=== PATIENT | male | born 1955 | race Caucasian/White ===

== ENCOUNTER 2021-09-30 13:10 | Observation (INO) | payer OTHER, SELFPAY ==
[2021-09-30] VITALS (29 sets, daily range): BP systolic 104–125; BP diastolic 54–72; PULSE 51–64; RESP 13–26; TEMP 36.2–36.7; O2SAT 95–98
--- NOTE | 2021-09-30 13:15 | RT.EKG_ITS ---
APPROVED REPORT Exam: Resting ECG Reason for Exam: heart issues Patient Location: E HR:54 bpm ECG Measurements Heart Rate 54 AXIS RI 164 P 47 QRSd 101 QRS 23 QT 437 T 53 QTc 416 Conclusion Sinus bradycardia.
--- NOTE | 2021-09-30 13:32 | ED.GENADUL_ITS ---
Discharge Plan Disposition Patient Disposition: [facility] INPATIENT Condition: Stable Discharge Details Clinical Impression: Diaphoresis, Fatigue, Arm paresthesia, left Admit Date/Time: 09/30/21 17:38 Admit Provider: Elyssa Solis Attending Provider: Elyssa Solis Primary Care Provider: Neli,Local ED Provider: Evgeny Dyer Discharge Data Discharge Date/Time-TO BE ENTERED AT DEPARTURE: 09/30/21 18:32 Medical Decision Making <JAQUELINE Aragon - Last Filed: 10/11/21 08:30> Patient is a pleasant 66-year-old male with past medical history pertinent for elevated cholesterol, prediabetes, typically receives care at the [facility], presenting today with chief complaint of diaphoresis, neck, or left shoulder pain, diaphoresis and fatigue while cutting wood. He reports that this occurred approximately 2 hours prior to arrival. He states that he been seen by his primary care within the last 2 weeks with his increased fatigue and that they ordered tick and Lyme panel as well as further evaluation for fatigue. He does not personally have a history of cardiac disease but his brother did have an ND in his 50s, father also had ND at a young age. He states that he is not having exertional fatigue and has been having some of the other symptoms such as the neck discomfort but to a much lesser degree that he experienced today. His fatigue is always exertionally based as it was today. He denies any pain radiating into his back. He denies any recent travel. No shortness of breath. States that he has had some nausea associated with his symptoms but is not currently nauseated. Denies any symptoms at this time. \On exam, patient appears nontoxic. He is slightly bradycardic with heart rate in the 50s. Unclear what his baseline is. He is not on any beta-blockers. Lungs are clear, sinus bradycardia cardiac exam is otherwise normal with no murmurs rubs or gallops. Slight epigastric discomfort with palpation of the abdomen. No lower extremity edema and shortness of breath with normal ext remities. EKG was reviewed by Dr. Carrasco. Significant for sinus bradycardia but no acute evidence of ischemic event or STEMI. Concern at this time for NSTEMI versus unstable angina. Patient given full dose aspirin to chew, will remain on cardiac rehabilitation specialist and will order labs including troponin. His work-up is pending for this acute on chronic fatigue, will also order thyroid panel. <JAQUELINE Sanchez - Last Filed: 09/30/21 17:43> Patient is a pleasant 66-year-old male with past medical history pertinent for elevated cholesterol, prediabetes, typically receives care at the [facility], presenting today with chief complaint of diaphoresis, neck, or left shoulder pain, diaphoresis and fatigue while cutting wood. He reports that this occurred trey roximately 2 hours prior to arrival. He states that he been seen by his primary care within the last 2 weeks with his increased fatigue and that they ordered tick and Lyme panel as well as further evaluation for fatigue. He does not personally have a history of cardiac disease but his brother did have an ND in his 50s, father also had ND at a young age. He states that he is not having exertional fatigue and has been having some of the other symptoms such as the neck discomfort but to a much lesser degree that he experienced today. His fatigue is always exertionally based as it was today. He denies any pain radiating into his back. He denies any recent travel. No shortness of breath. States that he has had some nausea associated with his symptoms but is not currently nauseated. Denies any symptoms at this time. \On exam, patient appears nontoxic. He is slightly bradycardic with heart rate in the 50s. Unclear what his baseline is. He is not on any beta-blockers. Lungs are clear, sinus bradycardia cardiac exam is otherwise normal with no murmurs rubs or gallops. Slight epigastric discomfort with palpation of the abdomen. No lower extremity edema and shortness of breath with normal extremities. EKG was reviewed by Dr. Carrasco. Significant for sinus bradycardia but no acute evidence of ischemic event or STEMI. Concern at this time for NSTEMI versus unstable angina. Patient given full dose aspirin to chew, will remain on cardiac rehabilitation specialist and will order labs including troponin. His work-up is pending for this acute on chronic fatigue, will also order thyroid panel. 1530: Evgeny Dyer PA-C I assumed care of this 66-year-old gentleman from my colleague JAQUELINE Rocha, please see her initial HPI and examination. Patient presented for blood is concerning for a chest pain equivalent while chopping wood today. Full dose aspirin has been given. He is currently asymptomatic. Initial cardiac work-up unremarkable. Awaiting delta troponin and EKG. Repeat EKG performed at 1645 reveals sinus bradycardia, ventricular to 56, no STEMI. Delta troponin remains less than 50. Patient has a heart score of 4 or 5 depending on how he would categorize his overall story and presentation. Either way this places him into the moderate risk factor I do believe that admission for additional cardiac work-up is reasonable. This plan was discussed both with patient Case discussed with Dr. Solis who is agreeable to admit the patient. This documentation was generated using Shoot it!ation system, please disregard any oddities of phrase or misspellings. Imaging Data Radiologic Study: Attestation: I personally reviewed and interpreted this imaging study as follows: Imaging: X-Ray Radiologist's impression: Exam(s) XR CHEST 2V PA LATERAL EXAM: XR CHEST 2V PA LATERAL CLINICAL HISTORY: weakness, diaphoresis TECHNIQUE: 2D digital imaging was performed of the chest. Two images were obtained. PA and lateral views were obtained. COMPARISON: No exams were available for comparison FINDINGS: MEDIASTINUM: Normal. HEART: Normal. PULMONARY VASCULATURE: Normal. LUNGS: Clear. PLEURAL SPACE: No pleural effusion or pneumothorax. BONE:Within normal limits for the patient's age. OTHER FINDINGS:Normal. IMPRESSION: No acute pulmonary findings. Lab Data Lab results reviewed: Yes I reviewed the patient's lab results. Labs: Laboratory Tests Range/Units 09/30/21 09/30/21 09/30/21 13:40 13:40 13:40 WBC (4.4-10.8) 10^3/uL 7.27 RBC (4.36-5.78) 10^6/uL 4.77 Hgb (13.5-17.5) g/dL 14.2 Hct (40.0-50.0) % 42.0 MCV (80-95) fL 88 MCH (27.0-33.0) pg 29.8 MCHC (32.0-36.0) % 33.8 RDW (11.8-14.1) % 12.9 Plt Count (130-400) 10^3/uL 197 MPV (8.0-11.0) fL 10.9 Immature Gran % 0.4 Neutrophils % 66.1 Lymphocytes % 17.5 Monocytes % 14.2 Eosinophils % 1.5 Basophils % 0.3 Nucleated RBC % (0.0-0.3) % 0.0 Absolute Neutrophils (1.2-6.7) 10^3/uL 4.81 Absolute Lymphocytes (1.2-3.4) 10^3/uL 1.27 Absolute Monocytes (0.1-0.8) 10^3/uL 1.03 H Absolute Eosinophils (0.0-0.7) 10^3/uL 0.11 Absolute Basophils (0.0-0.2) 10^3/uL 0.02 Sodium (136-145) mmol/L 141 Potassium (3.5-5.1) mmol/L 3.8 Chloride (98-107) mmol/L 106 Carbon Dioxide (21.0-32.0) mmol/L 26.6 Anion Gap (3-11) mmol/L 8.4 BUN (7-18) mg/dL 17 Creatinine (0.70-1.30) mg/dL 1.0 Estimated GFR/1.73 m2 (mL/min/1.73m2) >= 60.00 Glucose (74-106) mg/dL 104 Calcium (8.5-10.1) mg/dL 8.1 L Magnesium (1.8-2.4) mg/dL 2.1 Total Bilirubin (0.2-1.0) mg/dL 0.4 AST (15-37) U/L 37 ALT (16-63) U/L 44 Alkaline Phosphatase (46-116) U/L 54 Troponin I (<or=60) ng/L < 50 Total Protein (6.4-8.2) g/dL 6.8 Albumin (3.4-5.0) g/dL 3.6 TSH (0.36-3.74) uIU/mL 2.29 Range/Units 09/30/21 16:43 WBC (4.4-10.8) 10^3/uL RBC (4.36-5.78) 10^6/uL Hgb (13.5-17.5) g/dL Hct (40.0-50.0) % MCV (80-95) fL MCH (27.0-33.0) pg MCHC (32.0-36.0) % RDW (11.8-14.1) % Plt Count (130-400) 10^3/uL MPV (8.0-11.0) fL Immature Gran % Neutrophils % Lymphocytes % Monocytes % Eosinophils % Basophils % Nucleated RBC % (0.0-0.3) % Absolute Neutrophils (1.2-6.7) 10^3/uL Absolute Lymphocytes (1.2-3.4) 10^3/uL Absolute Monocytes (0.1-0.8) 10^3/uL Absolute Eosinophils (0.0-0.7) 10^3/uL Absolute Basophils (0.0-0.2) 10^3/uL Sodium (136-145) mmol/L Potassium (3.5-5.1) mmol/L Chloride (98-107) mmol/L Carbon Dioxide (21.0-32.0) mmol/L Anion Gap (3-11) mmol/L BUN (7-18) mg/dL Creatinine (0.70-1.30) mg/dL Estimated GFR/1.73 m2 (mL/min/1.73m2) Glucose (74-106) mg/dL Calcium (8.5-10.1) mg/dL Magnesium (1.8-2.4) mg/dL Total Bilirubin (0.2-1.0) mg/dL AST (15-37) U/L ALT (16-63) U/L Alkaline Phosphatase (46-116) U/L Troponin I (<or=60) ng/L < 50 Total Protein (6.4-8.2) g/dL Albumin (3.4-5.0) g/dL TSH (0.36-3.74) uIU/mL HPI <JAQUELINE Aragon - Last Filed: 10/11/21 08:30> General Date/Time Provider Initiated Documentation: 09/30/21 13:32 . Limitations to Documentation: no limitations . Information obtained by: patient and RN notes reviewed . History of Present Illness 66 year old M presents to the emergency department with the chief complaint of jaw, left shoulder discomfort, diaphoresis, fatigue, nausea, described as moderate, with intensity rated at 4. Quality is described as other (pressure), and is localized to the neck, left and upper extremity. Patient started experiencing this week(s) and it has been intermittent. Immobilization improves symptom(s), Movement worsens symptoms . Patient notes chest pain (mild chest pressure, not during majority of these episodes), diaphoresis and nausea/vomiting; denies cough, fever/chills, loss of appetite, shortness of breath and syncope. Patient did receive the following treatments prior to arrival, none Related Data Home Medications Medication Instructions Recorded Confirmed citalopram 30 mg capsule 30 mg PO DAILY 09/30/21 09/30/21 pravastatin 20 mg tablet 40 mg PO DAILY 09/30/21 09/30/21 Allergies Allergy/AdvReac Type Severity Reaction Status Date / Time No Known Allergies Allergy Unverified 09/30/21 13:27 General Stated Complaint: Chest Pain HECTOR: 3 Review of Systems <JAQUELINE Aragon - Last Filed: 10/11/21 08:30> Constitutional Constitutional: Reports as per HPI, Denies chills, Denies fever(s), Denies headache(s), Denies lethargy and Denies poor appetite ENT Ears, Nose, Mouth, and Throat: Denies dizziness and Denies headache(s) Cardiovascular Cardiovascular: Reports as per HPI, Denies dyspnea and Denies dyspnea on exertion Respiratory Respiratory: Reports as per HPI, Denies chest congestion, Denies cough, Denies pain on inspiration, Denies pain with cough, Denies dyspnea and Denies dyspnea on exertion Gastrointestinal Gastrointestinal: Reports as per HPI, Denies abdominal pain, Denies diarrhea and Denies vomiting Genitourinary Genitourinary: Denies system reviewed and no additional complaints, except as documented (denies change in urinary habits) Musculoskeletal Musculoskeletal: Reports as per HPI and Denies back pain Integumentary/Breasts Skin/Breast: Reports as per HPI and Denies rash Neurologic Neurologic: Reports as per HPI, Denies dizziness and Denies headache(s) PFSH <JAQUELINE Aragon - Last Filed: 10/11/21 08:30> All Active Problems (Updated 10/02/21 @ 00:07 by CHALO PIÑA) Diaphoresis (Acute) Fatigue (Acute) Arm paresthesia, left (Acute) Social History Smoking/Tobacco Use Status: Never Smoking risk assessment performed?: Yes Alcohol Intake: current Alcohol Intake frequency: holidays/special occasions only Alcohol type: beer Drug use: Never Substance use type: does not use Do you feel safe at home: Yes Do you feel safe in your relationship?: Yes Exam <JAQUELINE Aragon - Last Filed: 10/11/21 08:30> Const General: cooperative, healthy appearing, comfortable, no acute distress and well developed Nutritional Appearance: average body habitus and well nourished Orientation: alert, awake and oriented x3 [facility] Head: normal to inspection Ears: hearing grossly normal bilaterally Mouth: moist mucous membranes Chest Chest: normal inspection of the chest, normal palpation of entire chest wall and no crepitus Resp Effort & Inspection: normal respiratory effort, able to speak in complete sentences and no respiratory distress Auscultation: clear to auscultation bilaterally, no rales, no rhonchi and no wheezes Cardio Rate: regular rate Rhythm: regular rhythm Heart Sounds: S1 normal and S2 normal GI Inspection: normal to inspection, no edema and non-distended Palpation: soft, no hepatosplenomegaly, not firm, no guarding, not rigid and nontender Auscultation: normal bowel sounds Skin General skin exam: no rashes or lesions noted Trauma: no lacerations or abrasions Neuro General: patient alert, patient awake and patient oriented x3 Cognition: normal cognition Speech: speech normal Gait: normal gait Extrem General: normal to inspection, capillary refill normal, no pedal edema, no calf tenderness and normal gait Psych Appearance: grossly normal and well kempt Mental Status: mental status grossly normal Speech and Movement: speech and movement normal Course <JAQUELINE Aragon Filed: 10/11/21 08:30> Vital Signs Vital signs: Vital Signs Temperature 36.2 C L 09/30/21 13:20 Pulse 55 L 09/30/21 13:20 Respiratory Rate 18 09/30/21 13:20 Pulse Oximetry 97 09/30/21 13:20 Temperature 36.2 C L 09/30/21 13:20 Temperature Source Temporal Artery Scan 09/30/21 13:20 Pulse 55 L 09/30/21 13:20 Respiratory Rate 18 09/30/21 13:20 Respiratory Effort Non-Labored 09/30/21 13:28 Respiratory Depth Normal 09/30/21 13:28 Respiratory Pattern Normal 09/30/21 13:28 Pulse Oximetry 97 09/30/21 13:20 Oxygen Delivery Method Room Air 09/30/21 13:20 Oxygen Flow Rate 0 09/30/21 13:20 Pain Level 4 09/30/21 13:20 Sign Out <JAQUELINE Aragon Filed: 10/11/21 08:30> Sign Out Data: Sign Out Comment: Care transition to Ed Dyer PA-C. Concern for NSTEMI versus unstable angina. He has received aspirin. heart score of 6. Awaiting repeat troponin. Stable and asymptomatic. Last updated by Yanira Rocha PA at 09/30/21 16:25 PAWSS <JAQUELINE Aragon - Last Filed: 10/11/21 08:30> Have you Been Recently Intoxicated or Drunk Within the Last 30 days?: No Have you Ever Experienced Previous Episodes of Alcohol Withdrawal?: No Have you ever Experienced Withdrawal Seizures?: No Have you ever Experienced Delirium Tremens(DT)s?: No Have you ever undergone Alcohol Rehabilitation Treatment (i.e, inpt ot outpatient treatment programs)?: No Have you ever Experienced Blackouts?: No Have you ever Combined Alcohol with other Downers within the last 90 days?: No Have you ever Combined Alcohol with any other Substance of Abuse during the last 90 days?: No Positive Blood Alcohol level on Presentation? [PCS.BAL]: No Evidence of Increased Autonomic Activity (i.e. HR>120, tremor, sweating, agitation, nausea)?: No Result: 0 <JAQUELINE Sanchez - Last Filed: 09/30/21 17:43> Result: 0
[2021-09-30] MEDS: Aspirin 81 MG CHEW (13:48)
[2021-09-30 13:58] LABS: Abs Immature Grans 0.03 10^3/uL (0.0-0.06); Absolute Basophil Count 0.02 10^3/uL (0.0-0.2); Absolute Eosinophil Count 0.11 10^3/uL (0.0-0.7); Absolute Lymphocyte Count 1.27 10^3/uL (1.2-3.4); Absolute Monocyte Count 1.03 10^3/uL (0.1-0.8); Absolute Neutrophil Count 4.81 10^3/uL (1.2-6.7); Basophils % 0.3; Eosinophils % 1.5; HGB 14.2 g/dL (13.5-17.5); Immature Grans % 0.4; Lymphocytes % 17.5; MCH 29.8 pg (27.0-33.0); MCHC 33.8 % (32.0-36.0); MCV 88 fL (80-95); MPV 10.9 fL (8.0-11.0); Monocytes % 14.2; Neutrophils % 66.1; Platelet Count 197 10^3/uL (130-400); RBC 4.77 10^6/uL (4.36-5.78); RDW 12.9 % (11.8-14.1); WBC 7.27 10^3/uL (4.4-10.8)
[2021-09-30 14:16] LABS: ALT 44 U/L (16-63); AST 37 U/L (15-37); Albumin 3.6 g/dL (3.4-5.0); Alkaline Phosphatase 54 U/L (46-116); Anion Gap 8.4 mmol/L (3-11); BUN 17 mg/dL (7-18); Bilirubin, Total 0.4 mg/dL (0.2-1.0); CO2 26.6 mmol/L (21.0-32.0); Calcium 8.1 mg/dL (8.5-10.1); Chloride 106 mmol/L (98-107); Glucose 104 mg/dL (74-106); Magnesium 2.1 mg/dL (1.8-2.4); Potassium 3.8 mmol/L (3.5-5.1); Sodium 141 mmol/L (136-145); Total Protein 6.8 g/dL (6.4-8.2); Troponin I < 50 ng/L (<or=60)
[2021-09-30 14:25] LABS: TSH (W/Ref FT4) 2.29 uIU/mL (0.36-3.74)
--- NOTE | 2021-09-30 14:30 | RT.EKG_ITS ---
APPROVED REPORT Exam: Resting ECG Reason for Exam: CP Patient Location: E HR:56 bpm ECG Measurements Heart Rate 56 AXIS MA 168 P 49 QRSd 96 QRS 14 QT 430 T 55 QTc 414 Conclusion Sinus bradycardia
--- NOTE | 2021-09-30 16:30 | RT.EKG_ITS ---
APPROVED REPORT Exam: Resting ECG Reason for Exam: weakness Patient Location: E HR:56 bpm ECG Measurements Heart Rate 56 AXIS OR 173 P 53 QRSd 92 QRS 1 QT 424 T 51 QTc 411 Conclusion Sinus bradycardia...rate< 60
--- NOTE | 2021-09-30 16:30 | RT.EKG_ITS ---
APPROVED REPORT Exam: Resting ECG Reason for Exam: weakness Patient Location: E HR:54 bpm ECG Measurements Heart Rate 54 AXIS NH 171 P 50 QRSd 95 QRS 22 QT 432 T 52 QTc 411 Conclusion Sinus bradycardia...rate< 60
[2021-09-30 17:05] LABS: Troponin I < 50 ng/L (<or=60)
[2021-09-30 17:42] LABS: Source Nasal/Nares
[2021-09-30 18:19] LABS: COVID-19 PCR Negative (Negative)
[2021-09-30] MEDS: Enoxaparin 40 MG/0.4 ML SYR SC (19:55)
[2021-09-30] MEDS: Pravastatin 20 MG TAB 40 MG PO (21:33)
[2021-10-01 03:52] VITALS: BP 134/82; PULSE 54; RESP 18; TEMP 36.7; O2SAT 97
--- NOTE | 2021-10-01 06:25 | HPE_ITS ---
Date of service: 09/30/21 Time of Service: 17:30 Assessment and Plan Assessment and plan (1) Diaphoresis: Status: Acute Assessment and plan: Diaphoresis has resolved (2) Fatigue: Status: Acute Assessment and plan: Has been having 2 weeks of fatigue with no known cause. Tick and Lyme studies are pending at the [facility]. Checking labs, echo and MPI stress test (3) Arm paresthesia, left: Status: Acute Assessment and plan: Resolved As above History of Present Illness History of Present Illness Chief Complaint: Left shoulder pain Narrative: This 66-year-old male with past medical history pertinent for elevated cholesterol, prediabetes, typically receives care at the [facility], presented to the [facility] emergency department with the chief complaint of left shoulder pain,? diaphoresis and fatigue while cutting wood.? He reports that this occurred approximately 2 hours prior to arrival.? He stated that he was seen by his primary care provider within the last 2 weeks with the complaint of increased fatigue. The PCP ordered a tick and Lyme panel as well as further evaluation for fatigue.? He does not have a history of cardiac disease but his brother did have an CO in his 50s, father also had CO at a young age.? He stated he is having exertional fatigue and has been having some neck discomfort but to a much lesser degree than he experienced today.? He denied any pain radiating into his back.? He denied any recent travel.?He denied chest pain and shortness of breath.? He stated he also had some nausea associated with his symptoms. In the emergency department he stated all of his symptoms had resolved. His EKG was NSR and labs were unremarkable. He is placed in observation status on the medical surgical unit. Review of Systems All systems reviewed & are unremarkable except as noted in HPI and below PFSH All Active Problems (Updated 10/02/21 @ 00:07 by CHALO PIÑA) Diaphoresis (Acute) Fatigue (Acute) Arm paresthesia, left (Acute) Social History Smoking/Tobacco Use Status: Never Smoking risk assessment performed?: Yes Alcohol Intake: current Alcohol Intake frequency: holidays/special occasions only Alcohol type: beer Drug use: Never Substance use type: does not use Do you feel safe at home: Yes Do you feel safe in your relationship?: Yes Meds Allergies and Home Medications Allergies Allergy/AdvReac Type Severity Reaction Status Date / Time No Known Allergies Allergy Unverified 09/30/21 13:27 Home Medications Medication Instructions Recorded Confirmed Type citalopram 30 mg capsule 30 mg PO DAILY 09/30/21 09/30/21 History pravastatin 20 mg tablet 40 mg PO DAILY 09/30/21 09/30/21 History Exam Narrative Exam Narrative: Const General: no acute distress Nutritional Appearance: average body habitus [facility] Head: normocephalic Ears: external ears normal and no periauricular adenopathy General nose exam: nasal mucous membranes and turbinates normal Face and sinus: sinuses nontender Mouth: oropharynx normal and moist mucous membranes Teeth and gingiva: dentition normal Eyes General: appearance normal, both eyes and all related structures Pupils: PERRL Neck Neck: normal visual inspection and no lymphadenopathy Chest Chest: normal inspection of the chest Resp Effort & Inspection: normal respiratory effort Auscultation: no rales, no rhonchi and no wheezes Cardio Rate: tachycardic Rhythm: regular rhythm Heart Sounds: S1 normal, S2 normal and no murmurs Pulses: radial pulses present bilaterally GI Inspection: normal to inspection Palpation: soft Skin General skin exam: no rashes or lesions noted Neuro General: patient alert, patient awake and patient oriented x3 Extrem General: no clubbing, cyanosis or edema Psych Mental Status: mental status grossly normal Affect: normal affect Attitude: cooperative Results Labs Result diagrams: 10/01/21 06:20 10/01/21 06:20 Labs: Laboratory Results - last 24 hr 09/30/21 09/30/21 09/30/21 13:40 13:40 13:40 WBC 7.27 RBC 4.77 Hgb 14.2 Hct 42.0 MCV 88 MCH 29.8 MCHC 33.8 RDW 12.9 Plt Count 197 MPV 10.9 Immature Gran % 0.4 Neutrophils % 66.1 Lymphocytes % 17.5 Monocytes % 14.2 Eosinophils % 1.5 Basophils % 0.3 Nucleated RBC % 0.0 Absolute Neutrophils 4.81 Absolute Lymphocytes 1.27 Absolute Monocytes 1.03 H Absolute Eosinophils 0.11 Absolute Basophils 0.02 Sodium 141 Potassium 3.8 Chloride 106 Carbon Dioxide 26.6 Anion Gap 8.4 BUN 17 Creatinine 1.0 Estimated GFR/1.73 m2 >= 60.00 Glucose 104 Calcium 8.1 L Magnesium 2.1 Total Bilirubin 0.4 AST 37 ALT 44 Alkaline Phosphatase 54 Troponin I < 50 Total Protein 6.8 Albumin 3.6 TSH 2.29 COVID-19 Source SARS-CoV-2 (PCR) 09/30/21 09/30/21 16:43 17:35 WBC RBC Hgb Hct MCV MCH MCHC RDW Plt Count MPV Immature Gran % Neutrophils % Lymphocytes % Monocytes % Eosinophils % Basophils % Nucleated RBC % Absolute Neutrophils Absolute Lymphocytes Absolute Monocytes Absolute Eosinophils Absolute Basophils Sodium Potassium Chloride Carbon Dioxide Anion Gap BUN Creatinine Estimated GFR/1.73 m2 Glucose Calcium Magnesium Total Bilirubin AST ALT Alkaline Phosphatase Troponin I < 50 Total Protein Albumin TSH COVID-19 Source Nasal/Nares SARS-CoV-2 (PCR) Negative Last Vital Signs Temp 36.7 C 10/01/21 03:52 Pulse 54 L 10/01/21 03:52 Resp 18 10/01/21 03:52 BP 134/82 10/01/21 03:52 Pulse Ox 97 10/01/21 03:52 PAWSS Have you Been Recently Intoxicated or Drunk Within the Last 30 days?: No Have you Ever Experienced Previous Episodes of Alcohol Withdrawal?: No Have you ever Experienced Withdrawal Seizures?: No Have you ever Experienced Delirium Tremens(DT)s?: No Have you ever undergone Alcohol Rehabilitation Treatment (i.e, inpt ot outpatient treatment programs)?: No Have you ever Experienced Blackouts?: No Have you ever Combined Alcohol with other Downers within the last 90 days?: No Have you ever Combined Alcohol with any other Substance of Abuse during the last 90 days?: No Positive Blood Alcohol level on Presentation? [PCS.BAL]: No Evidence of Increased Autonomic Activity (i.e. HR>120, tremor, sweating, agitation, nausea)?: No Result: 0
[2021-10-01 07:03] VITALS: PULSE 76
[2021-10-01 07:26] VITALS: BP 124/78; PULSE 50; RESP 18; TEMP 36.3; O2SAT 97
--- NOTE | 2021-10-01 07:30 | RT.EKG_ITS ---
APPROVED REPORT Exam: Resting ECG Reason for Exam: chest pain Patient Location: I HR:59 bpm ECG Measurements Heart Rate 59 AXIS CA 167 P 43 QRSd 97 QRS -10 QT 413 T 45 QTc 410 Conclusion Sinus rhythm...normal P axis, V-rate 50- 99 Normal Electrocardiogram
--- NOTE | 2021-10-01 08:00 | DI.NM_ITS ---
APPROVED REPORT Exam: Exercise Treadmill Patient Location: In-Patient Room/Bed: [address] [place] [address] Nurse: Nydia Rivas RN Ordering Provider:LAISHA SALCEDO, Contact Number: BMI: 31.62 Baseline Rhythm: Sinus Bradycardia Comment: PAC's Indications: Chest pain Medical History Medical History: HLD, pre Diabetes Cardiac Medications: Pravastatin Allergies: NKA Cardiac Risk Factors: Family history, HLD, pre Diabetes Previous Cardiac Procedures: None Pretest Chest Pain Characteristics: None Exercise History: Physically active Physical Disabilities: None Lung Sounds: Clear to air Heart Sounds: S1/S2 Stress Test Details Test: Exercise stress testing was performed using a Eb protocol. Nuclear Acquisition: Rest Tc-99m/Stress Tc-99m 1 day Rest Isotope: Tc-99m Sestamibi. Dose: 11 Date: 10/01/2021 Injection Time: 10:30 Stress Isotope: Tc-99m Sestamibi. Dose: 36 Date: 10/01/2021 Injection Time: 11:57 HR Resting HR Supine: 47 bpm Max Heart Rate (APMHR): 153.445151 bpm Resting HR Standin bpm Target HR (85% APMHR): 130.929122 bpm Max HR Achieved: 145 bpm % of APMHR: 94.77 Recovery HR: 59 bpm HR response to stress: Normal HR response to stress BP Resting BP Supine: 112/68 mmHg Resting BP Standin/68 mmHg Max BP: 132/68 mmHg Recovery BP: 102/68 mmHg BP response to stress: Normal blood pressure response to stress. ECG Resting ECG: Sinus Bradycardia Ectopy: Frequent PAC's Stress ECG: Sinus Tachycardia ST Change: No significant ST segment changes noted Arrhythmia: PAC's Recovery ECG: Sinus Rhythm, , Clear Recovery ST Change: No significant ST segment changes noted Recovery Arrhythmia: PVC's (singular, couplets, and triplets) PAC's Comment: Asymptomatic w/ PVC's, PVC's started within 30 seconds of recovery and lasted about 30 secon ds. Resolved when patient returned and layed down on stretcher. Clinical Reason for Termination: Fatigue Stress Symptoms: General Fatigue Exercise duration: 10 min25 sec Highest Stage Reached: Stage 4: 4.2 mph at 16% grade. Exercise capacity: 12.49 METs Angina Score: None Spaulding Treadmill Score: 9 Rate Pressure Product: [id number] Stress ECG Conclusion 1. The resting electrocardiogram was within normal limits 2. Patient exercised on the Eb protocol and completed a workload of 12.49 METS, limited by fatigue 3. Normal heart rate and blood pressure response to exercise. The patient achieved 94% of predicted heart rate for age 4. There was no electrocardiographic evidence of myocardial ischemia 5. PVCs were seen 6. See MPI report Spaulding Treadmill Score is 9 which is Low risk. Stress Test Summary STAGE Time (mins) Speed (mph) Grade (%) HR BP SpO2 SYMPTOMS METS Supine 47 112/68 Standing 57 106/68 1 3 1.7 10 76 112/68 4.5 2 6 2.5 12 93 124/70 7 3 9 3.4 14 125 138/62 10 4 12 4.2 16 136 13 1 min recovery 115 132/60 3 min recovery 62 6 min recovery 59 102/68 Patient tolerated stress test well. Pt's symptomology was difficult to follow at times. Pt reported h e has had left arm and shoulder pain for weeks. Patient denied any symptoms before and during the miko t. When moved from the treadmill to stretcher he reported he had some left shoulder pain that starts in his shoulder and radiates downward. Patient reported that this pain last less than one minute and then resolved. MPI Conclusion Myocardial perfusion is normal. There is no ischemia or evidence of prior infarction EF is 57%, wall motion is normal Radiologist Interpretation Radiologist agrees with Egg Grader's Interpretation. Radiologist Interpretation by: Rip Ewing MD Interpretation Date/Time: 10/01/2021 14:33:43
[2021-10-01 08:07] LABS: Abs Immature Grans 0.02 10^3/uL (0.0-0.06); Absolute Basophil Count 0.03 10^3/uL (0.0-0.2); Absolute Eosinophil Count 0.11 10^3/uL (0.0-0.7); Absolute Lymphocyte Count 1.56 10^3/uL (1.2-3.4); Absolute Monocyte Count 0.91 10^3/uL (0.1-0.8); Absolute Neutrophil Count 3.84 10^3/uL (1.2-6.7); Basophils % 0.5; Eosinophils % 1.7; HCT 41.9 % (40.0-50.0); HGB 14.2 g/dL (13.5-17.5); Immature Grans % 0.3; Lymphocytes % 24.1; MCH 30.3 pg (27.0-33.0); MCHC 33.9 % (32.0-36.0); MCV 90 fL (80-95); MPV 11.5 fL (8.0-11.0); Monocytes % 14.1; Neutrophils % 59.3; Platelet Count 193 10^3/uL (130-400); RBC 4.68 10^6/uL (4.36-5.78); RDW 13.3 % (11.8-14.1); RDW-SD 43.3 fL; WBC 6.47 10^3/uL (4.4-10.8)
[2021-10-01 08:23] LABS: Anion Gap 7.5 mmol/L (3-11); BUN 16 mg/dL (7-18); CO2 28.5 mmol/L (21.0-32.0); CREATININE 0.9 mg/dL (0.70-1.30); Calculated LDL 58 mg/dL (<100); Chloride 106 mmol/L (98-107); Cholesterol 99 mg/dL (<200); Glucose 101 mg/dL (74-106); HDL Cholesterol 22 mg/dL (40-60); Potassium 4.1 mmol/L (3.5-5.1); Sodium 142 mmol/L (136-145); Triglyceride 95 mg/dL (<150)
[2021-10-01 08:39] LABS: Hemoglobin A1C 5.8 % (<5.7)
--- NOTE | 2021-10-01 09:04 | DI.US_ITS ---
APPROVED REPORT EXAM: Comprehensive 2D, Doppler, and color-flow Echocardiogram Patient Location: In-Patient Room/Bed: [facility] [place] Sociology Instructor: Gaby Rodriguez RDCS (AE) Indications: Chest pain, fatigue Other Information Study Quality: Adequate Conclusion Normal left ventricular wall thickness and chamber size. Estimated ejection fraction is 60-65%. Wal l motion is normal Normal right ventricular size and systolic function Both atria are normal in size There is no structural or hemodynamically significant valvular disease Dilated ascending aorta measuring 3.93 cm Wall motion Left Ventricle The left ventricle is normal size. The left ventricular systolic function is normal. The left ventric ular ejection fraction is within the normal range. There is normal left ventricular wall thickness. T here is normal LV segmental wall motion. There is no ventricular septal defect visualized. LVEF is 60 -65%. Right Ventricle The right ventricle is normal size. The right ventricular systolic function is normal. Atria The left atrium size is normal. The right atrium size is normal. The interatrial septum is intact wit h no evidence for an atrial septal defect. Aortic Valve The aortic valve is normal in structure. Aortic valve is trileaflet. There is no aortic valvular sten osis. No aortic regurgitation is present. Mitral Valve The mitral valve is normal in structure. No evidence of mitral valve stenosis. Trace to mild mitral r egurgitation. Tricuspid Valve The tricuspid valve is normal in structure. There is no tricuspid valve stenosis. Trace tricuspid reg urgitation. Unable to assess PA pressure. Pulmonic Valve The pulmonary valve is normal in structure. There is no pulmonic valvular stenosis. Trace pulmonic re gurgitation. Great Vessels The aortic root is normal in size. The ascending aorta is dilated Aortic arch is normal in caliber. m oderately dilated. IVC is normal in size and collapses >50% with inspiration. Pericardium There is no pericardial effusion. 2D Dimensions IVSD d PLAX 0.84 cm M: 0.6-1.2 LV Vol A2C d MOD 93.5 mL LVPW d PLAX 0.89 cm M: 0.6 - 1.2 LV Vol A4C d MOD 101.1 mL LVID d PLAX 4.44 cm M: 4.2 - 5.8 LA vol/ BSA A2C s A-L 26.3 mL/m2 LVDs 2.90 cm M: 2.5 - 4.0 LA vol/ BSA A4C s A-L 21.2 mL/m2 Ao Root d 2.68 cm M: 3.1 - 3.7 LA Vol/ BSA Biplane s A-L 23.7 mL/m2 RA Area A4C 11.71 cm2 LA Area A4C s MOD 16.19 cm2 RA Vol/ BSA A4C s A-L 13.8 mL/m2 LA Area A2C s MOD 18.05 cm2 Ao Asc Diam d 3.93 cm M: 2.6 - 3.4 LV EF A4C MOD 60.8 % LV EF Teichholz 63.0 % LV EF A2C MOD 64.5 % LVEF (Murrell's) 62.43 % M: 52 - 72 LV EF Biplane MOD 62.4 % LV Volume 72.80 mL M: 62 - 150 SV 61.37 mL LV Volume Index 35.00 mL/m2 M: 34 - 74 SV Index 29.53 mL/m2 LV Vol Biplane MOD 98.3 mL FS 33.90 % M-Mode TAPSE 2.71 cm (M/F) >1.7 LV Diastology MV E' medial 0.075 (>0.07 m/s) E/A Ratio 1.4 LV E/e MED 10.15 (<14) MV E Vmax 0.77 (0.4-1.3 m/s) MV E' lateral 0.110 (>0.1 m/s) MV A Vmax 0.55 (0.4-1.3 m/s) LV E/e LAT 7.00 (<14) MV E/A Ratio 1.38 MV E/E' medial 10.19 MV E/E' lateral 7.00 Aortic Valve LVOT Area 2.94 cm2 AoV Area Vmax 2.83 cm2 LVOT Vmax 0.91 m/s AoV Area/ BSA (Vmax) 1.36 cm2/m2 LVOT Mean Guilherme. 0.59 m/s TRISH Mean Guilherme. 2.46 cm2 LVOT Peak Grad 3.3 mmHg TRISH Mean Guilherme. Index 1.18 cm2/m2 LVOT Mean Grad 1.6 mmHg LVOT VTI 0.208 m LVOT Diam s 1.90 cm AoV Vmax 0.94 m/s Velocity Ratio 0.96 AoV Mean Guilherme. 0.70 m/s AoV Peak Grad 3.5 mmHg LVOT SV 61.23 mL AoV Mean Grad 2.2 mmHg AoV VTI 0.211 m AoV Area VTI 2.91 cm2 AoV Area/ BSA (VTI) 1.40 cm/m2 Mitral Valve MV DT 184 (160-240 msec) MV PHT 53 msec MV Area PHT 4.11 cm2 MV VTI 0.370 m MV Area VTI 1.65 (4.0-6.0 cm2) Pulmonary Valve PV Vmax 0.99 (0.5-1.5 m/s) RVOT Peak Gr. 2.40 mmHg PV Peak Grad 3.9 mmHg RVOT Mean Gr. 1.25 mmHg PV Mean Grad 2.1 mmHg RVOT VTI 0.189 m PV VTI 0.234 m RVOT Vmax 0.78 m/s
--- NOTE | 2021-10-01 10:27 | INITIAL_ITS ---
- If Service Date Differs Date of service: 10/01/21 Time of Service: 10:27 Care Management Initial Assess REASON FOR HOSPITALIZATION:: Chest Pain PAST MEDICAL HISTORY/PAST SURGICAL HISTORY:: All Active Problems. DVT prophylaxis (Acute). Discharge planning issues (Acute). Diaphoresis (Acute). Fatigue (Acute). Arm paresthesia, left (Acute) PREVIOUS FUNCTIONAL STATUS/SOCIAL/FAMILY SUPPORTS:: Dustin lives in [place] with his , Chetna. They have a local vacation home, which is where they were when he presented to the ED. He is a and has his care at [facility]. He owns a cleaning/mold remediation business, although he reports that he is trying to work less, and has sold some of his business. He is independent at baseline. CURRENT FUNCTIONAL STATUS:: Dustin was lying in bed when CM visited, his was by his side. He reported that he had an echo this morning, and an MPI stress test that he just returned from. He stated that he is feeling well, and is not in any pain. He is hoping to return home soon, if his tests went well. Per report, if his tests are normal, he will likely be discharged today. CM will continue to follow. ADVANCE DIRECTIVES:: None on file. Has patient been provided with info about the portal/API?: Yes Did the patient sign up for the portal?: No CODE STATUS:: Full Code INSURANCE COVERAGE / FINANCIAL ISSUES:: [employer] CURRENT HOME/COMMUNITY SERVICES/EQUIPMENT:: None. PRIMARY CARE PHYSICIAN:: No local PCP. He has his care at the [facility], no specific provider. POTENTIAL DISCHARGE NEEDS:: PCP attachment for follow up appointment. PATIENT/FAMILY EDUCATION NEEDS:: Review discharge instructions and limitations, discussion of self care needs including ask me three. ANTICIPATED BARRIERS TO DISCHARGE:: None. TRANSPORTATION:: Via private vehicle by family. PLAN:: Anticipate Dustin will return home when medically cleared by MD. His will drive him home via private vehicle. He will follow up with a local PCP, coordinated by CM, as well as his discharge plan of care. CM will continue to follow.
[2021-10-01] MEDS: Pantoprazole 40 MG VIAL IVP (14:11)
--- NOTE | 2021-10-01 14:42 | DSE_ITS ---
Date of service: 10/01/21 Time of Service: 14:42 DS: Diagnosis Discharge Diagnosis (1) Diaphoresis: Status: Acute (2) Fatigue: Status: Acute (3) Arm paresthesia, left: Status: Acute Discharge Plan Disposition Patient Disposition: HOME Condition: Stable Discharge Details Reason For Visit: Chest Pain Admit Date/Time: 09/30/21 17:38 Admit Provider: Elyssa Solis Attending Provider: Elyssa Slois Primary Care Provider: Ruthie Quinteros Hospital Course Hospital Course: This 66-year-old male with past medical history of elevated cholesterol, prediabetes, typically receives care at the [facility], presented to the [facility] emergency department with the chief complaint of left shoulder pain,? diaphoresis and fatigue while cutting wood.? He reports that this occurred approximately 2 hours prior to arrival.? He stated that he was seen by his primary care provider within the last 2 weeks with the complaint of increased fatigue.? The PCP ordered a tick and Lyme panel as well as further evaluation for fatigue.? He does not have a history of cardiac disease but his brother did have an MO in his 50s, father also had MO at a young age.?His EKG was NSR and labs were unremarkable.? He is placed in observation status on the medical surgical unit. Overnight he remained symptom free, vitals stable with no telemetry changes. He underwent an echo and stress test that showed no evidence of ischemia or prior infarct. EF 57% with no wall motion abnormalities. Plan is for discharge to home with outpatient follow up with pcp for further evaluation of his symptoms. No services at discharge. No medication changes. discharge discussed with Dr Solis? Home Meds and New Rx's Prescriptions: Continued pravastatin 20 mg tablet 40 mg PO DAILY citalopram 30 mg Capsule 30 mg PO DAILY Discharge Instructions Instructions: Chest Pain (DC) Additional Instructions: Your stress test showed no ischemia or evidence of prior infarction. Your ejection fraction is 57%, wall motion is normal. You should follow up with your primary care provider for further work up for your symptoms. Stand Alone Forms: Nursing Discharge Form Referrals: Ruthie Quinteros [Primary Care Provider] - (please schedule with [facility] provider ) Activity:: Activity as Tolerated Equipment/Supplies:: No Equipment Needed Diet:: As Tolerated Discharge Orders Discharge Orders: Discharge Order (Routine); Ordered 10/01/21 Ordered By: Meghana Redman Discharge Data Discharge Date/Time-TO BE ENTERED AT DEPARTURE: 10/01/21 17:17 DS: Summary Time Spent with Patient providing and/or coordinating discharge services: Less than 30 minutes Status at Discharge Functional status at discharge: independent ambulation Overall status at discharge: patient is back to baseline Mental Status: mental status grossly normal Speech and Movement: speech and movement normal Mood: congruent mood Affect: normal affect Exam Const General: cooperative, comfortable and no acute distress Nutritional Appearance: overweight Orientation: alert, awake and oriented x3 HENMT Head: normal to inspection, normocephalic and atraumatic Mouth: oral mucosae normal Resp Effort & Inspection: normal respiratory effort Auscultation: clear to auscultation bilaterally Cardio Rate: regular rate Rhythm: regular rhythm Psych Mental Status: mental status grossly normal Speech and Movement: speech and movement normal Mood: congruent mood Affect: normal affect DS: Data Vitals/I&O Vitals and I&O: Vital Signs Temperature 36.3 C L 10/01/21 07:26 Temperature Source Tympanic 10/01/21 07:26 Pulse 50 L 10/01/21 07:26 Pulse Rhythm Regular 10/01/21 05:15 Pulse 57 L 09/30/21 17:30 Respiratory Rate 18 10/01/21 07:26 Respiratory Effort Non-Labored 10/01/21 05:15 Respiratory Depth Normal 10/01/21 05:15 Respiratory Pattern Normal 10/01/21 05:15 Blood Pressure 124/78 10/01/21 07:26 Blood Pressure Mean 73 09/30/21 17:30 Pulse Oximetry 97 10/01/21 07:26 Oxygen Delivery Method Cpap 10/01/21 07:26 Oxygen Flow Rate 0 09/30/21 23:29 Pain Level 0 10/01/21 07:26 Intake & Output 09/30/21 10/01/21 10/01/21 23:59 11:59 23:59 Intake Total Balance Weight 94.8 kg 90.4 kg Intake: IV Other: Urine Appearance Clear Clear Comment pT stated that he had gotten up through the night to void. Last void was at 8:00. pT stated he used the bathroom, independently. Voiding Methods Toilet Toilet Toilet Data Completed and Pending Labs on day of discharge: Labs from last 24 hours 10/01/21 10/01/21 10/01/21 06:20 06:20 06:20 WBC 6.47 RBC 4.68 Hgb 14.2 Hct 41.9 MCV 90 MCH 30.3 MCHC 33.9 RDW 13.3 Plt Count 193 MPV 11.5 H Immature Gran % 0.3 Neutrophils % 59.3 Lymphocytes % 24.1 Monocytes % 14.1 Eosinophils % 1.7 Basophils % 0.5 Nucleated RBC % 0.0 Absolute Neutrophils 3.84 Absolute Lymphocytes 1.56 Absolute Monocytes 0.91 H Absolute Eosinophils 0.11 Absolute Basophils 0.03 Sodium 142 Potassium 4.1 Chloride 106 Carbon Dioxide 28.5 Anion Gap 7.5 BUN 16 Creatinine 0.9 Estimated GFR/1.73 m2 >= 60.00 Glucose 101 Hemoglobin A1c 5.8 H Calcium 8.0 L Magnesium 2.0 Troponin I Triglycerides 95 Total Cholesterol 99 LDL Cholesterol, Calc 58 HDL Cholesterol 22 L COVID-19 Source SARS-CoV-2 (PCR) 09/30/21 09/30/21 17:35 16:43 WBC RBC Hgb Hct MCV MCH MCHC RDW Plt Count MPV Immature Gran % Neutrophils % Lymphocytes % Monocytes % Eosinophils % Basophils % Nucleated RBC % Absolute Neutrophils Absolute Lymphocytes Absolute Monocytes Absolute Eosinophils Absolute Basophils Sodium Potassium Chloride Carbon Dioxide Anion Gap BUN Creatinine Estimated GFR/1.73 m2 Glucose Hemoglobin A1c Calcium Magnesium Troponin I < 50 Triglycerides Total Cholesterol LDL Cholesterol, Calc HDL Cholesterol COVID-19 Source Nasal/Nares SARS-CoV-2 (PCR) Negative PFSH All Active Problems (Updated 10/01/21 @ 06:43 by Kirstie Schmitz NP) DVT prophylaxis (Acute) Discharge planning issues (Acute) Diaphoresis (Acute) Fatigue (Acute) Arm paresthesia, left (Acute) Social History Smoking/Tobacco Use Status: Never Smoking risk assessment performed?: Yes Alcohol Intake: current Alcohol Intake frequency: holidays/special occasions only Alcohol type: beer Drug use: Never Substance use type: does not use Do you feel safe at home: Yes Do you feel safe in your relationship?: Yes
[2021-10-01 15:19] VITALS: BP 115/64; PULSE 57; RESP 22; TEMP 37; O2SAT 95
[2021-10-01] MEDS: Citalopram 10 MG TAB 30 MG PO (15:35)
[2021-10-01] MEDS: Aspirin 81 MG CHEW PO (15:36)
--- NOTE | 2021-10-01 17:41 | PDOC.CMDIS ---
- If Service Date Differs Date of service: 10/01/21 Time of Service: 17:41 LACE Index Scoring Tool - Questions: Length of Stay (in days): 1 Acuity (Admit via E.D.?): Yes E.D. Visits: 1 - Answers: Total Score: 5 Risk of Readmission: Low Risk Care Management Discharge Reason for Hospitalization: Chest Pain Discharge Plan: Dustin will return home today with no new services. His will drive him home via private vehicle. He will follow up with his PCP and discharge plan of care. He is happy to be going home. Patient/Family Education Needs: Review discharge instructions and limitations, discussion of self care needs including ask me three.
== END 2021-10-01 17:17 | disposition home or self-care (01) ==
LOC: ER 18:04 → MS 18:38
PROVIDERS: Nurse Practitioner Family; Physician Assistant; Admitting Provider Internal Medicine; Emergency Provider Physician Assistant; Visit Provider Internal Medicine
DX: R07.89 Other chest pain (principal); I49.3 Ventricular premature depolarization; I49.1 Atrial premature depolarization; R61 Generalized hyperhidrosis; E78.00 Pure hypercholesterolemia, unspecified; R73.03 Prediabetes; R53.83 Other fatigue; Z82.49 Family history of ischemic heart disease and other diseases of the circulatory system; R20.2 Paresthesia of skin; Z20.822 Contact with and (suspected) exposure to COVID-19; M25.512 Pain in left shoulder; R11.0 Nausea; Z79.899 Other long term (current) drug therapy
CPT/HCPCS: 36415; 78452; 80048; 80053; 80061; 87635; 93005; 96372; 96374; 99285; J1650; 71046; 83036; 83735; 84443; 84484; 85025; 93010; 93017; 93306; 99217; 99219; 99284; G0378